=== PATIENT | female | born 1935 | race Caucasian/White ===

== ENCOUNTER 2018-04-02 00:43 | Emergency (ER) | payer MEDICARE, OTHER ==
[~2018-04-02] VITALS: Ht 165.1 cm; Wt 95.5 kg
[2018-04-02 00:48] VITALS: BP 150/62
[2018-04-02 01:21] LABS: BASOPHILS % (AUTO) 0.5 % (0-1); EOSINOPHILS # (AUTO) 0.1 X10'3 (0-0.9); EOSINOPHILS % (AUTO) 2.1 % (0-6); HEMATOCRIT 39.9 % (35.0-45.0); HEMOGLOBIN 13.6 g/dl (12.0-16.0); LYMPHOCYTES # (AUTO) 1.7 X10'3 (1.1-4.8); MEAN CORPUSCULAR HEMOGLOBIN 31.4 PG (27.0-31.0); MEAN CORPUSCULAR HGB CONC 33.9 % (33.0-36.5); MEAN CORPUSCULAR VOLUME 92.4 FL (78-98); MEAN PLATELET VOLUME 8.1 FL (7.4-10.4); MONOCYTES # (AUTO) 0.5 X10'3 (0-0.9); MONOCYTES % (AUTO) 9.8 % (2-12); NEUTROPHILS # (AUTO) 3.1 X10'3 (1.8-7.7); NEUTROPHILS % (AUTO) 55.6 % (42-75); PLATELET COUNT 199 X10'3 (140-440); RED BLOOD COUNT 4.32 X10'6 (4.20-5.60); RED CELL DISTRIBUTION WIDTH 13.3 % (11.5-14.5); WHITE BLOOD COUNT 5.4 X10'3 (4.5-11.0)
[2018-04-02 01:38] LABS: ALANINE AMINOTRANSFERASE 17 U/L (12-78); ALBUMIN 3.8 G/DL (3.4-5.0); ALBUMIN/GLOBULIN RATIO 1.3 (1.1-1.5); ALKALINE PHOSPHATASE 78 IU/L (46-116); ANION GAP 10 (8-16); ASPARTATE AMINO TRANSFERASE 14 U/L (10-37); BILIRUBIN,TOTAL 0.3 MG/DL (0.1-1.0); BLOOD UREA NITROGEN 25 MG/DL (7-18); BUN/CREATININE RATIO 19.4 (6.6-38.0); CALCIUM 9.1 MG/DL (8.5-10.1); CHLORIDE 107 MMOL/L (99-107); CREATININE 1.29 MG/DL (0.40-0.90); GLUCOSE 125 MG/DL (70-104); POTASSIUM 3.8 MMOL/L (3.5-5.1); SODIUM 140 MMOL/L (135-145); TOTAL CARBON DIOXIDE 23.5 MMOL/L (24-32); TOTAL PROTEIN 6.8 G/DL (6.4-8.2); eGFR 40 ML/MIN
[2018-04-02 01:42] LABS: PARTIAL THROMBOPLASTIN TIME 29 SECONDS (22-32); PROTHROMBIN TIME 9.7 SECONDS (9.0-12.0)
[2018-04-02 01:53] LABS: MAGNESIUM 1.4 MG/DL (1.5-2.4); PHOSPHORUS 3.2 MG/DL (2.3-4.5)
== END 2018-04-02 02:30 | disposition home or self-care (01) ==
LOC: ER 00:43
DX: R00.2 Palpitations (principal); R06.02 Shortness of breath; I10 Essential (primary) hypertension; E11.9 Type 2 diabetes mellitus without complications; Z88.5 Allergy status to narcotic agent; Z88.8 Allergy status to other drugs, medicaments and biological substances
CPT/HCPCS: 36415; 71045; 80053; 83735; 84100; 84484; 85025; 85610; 85730; 93005; 99284

== ENCOUNTER 2021-10-06 06:32 | Day surgery (SDC) | payer MEDICARE, OTHER ==
[~2021-10-06] VITALS: Ht 162.6 cm; Wt 94.4 kg
[2021-10-06] MEDS ORDERED: normal saline 1000ml 1,000 ML IV PRN (07:00)
[2021-10-06] MEDS ORDERED: ceFAZolin inj. 2,000 MG in normal saline soln 50 ML IV ONE (07:00)
[2021-10-06 07:05] VITALS: BP 128/63
[2021-10-06] MEDS ORDERED: cefazolin/dext.iso 2gm/100ml 100 ML IV ONE (07:09)
[2021-10-06] MEDS ORDERED: METF-1203 PO (07:10)
[2021-10-06] MEDS ORDERED: BENA40TA45 PO (07:10)
[2021-10-06] MEDS ORDERED: HYDR-3964 PO (07:10)
[2021-10-06] MEDS ORDERED: LEVO50TA8 PO (07:10)
[2021-10-06] MEDS ORDERED: METO25TA6 PO (07:10)
[2021-10-06] MEDS ORDERED: AMLO10TA13 PO (07:10)
[2021-10-06] MEDS ORDERED: DIPH25CA52 PO (07:14)
[2021-10-06] MEDS ORDERED: MULT-381 PO (07:14)
[2021-10-06] MEDS ORDERED: ASPI-1071 PO (07:16)
[2021-10-06] MEDS ORDERED: Tylenol (07:16)
[2021-10-06] MEDS ORDERED: PRAV20TA4 PO (07:18)
[2021-10-06 07:41] LABS: BASOPHILS % (AUTO) 0.7 % (0-1); EOSINOPHILS # (AUTO) 0.1 X10'3 (0-0.9); EOSINOPHILS % (AUTO) 2.4 % (0-6); HEMATOCRIT 36.9 % (35.0-45.0); HEMOGLOBIN 12.3 g/dl (12.0-16.0); LYMPHOCYTES # (AUTO) 1.9 X10'3 (1.1-4.8); LYMPHOCYTES % (AUTO) 33.8 % (21-51); MEAN CORPUSCULAR HEMOGLOBIN 29.2 PG (27.0-31.0); MEAN CORPUSCULAR HGB CONC 33.3 g/dL (33.0-36.5); MEAN CORPUSCULAR VOLUME 87.8 FL (78-98); MEAN PLATELET VOLUME 7.4 FL (7.4-10.4); MONOCYTES # (AUTO) 0.8 X10'3 (0-0.9); MONOCYTES % (AUTO) 14.8 % (2-12); NEUTROPHILS # (AUTO) 2.7 X10'3 (1.8-7.7); NEUTROPHILS % (AUTO) 48.3 % (42-75); PLATELET COUNT 218 X10'3 (140-440); RED CELL DISTRIBUTION WIDTH 15.9 % (11.5-14.5); WHITE BLOOD COUNT 5.6 X10'3 (4.5-11.0)
[2021-10-06] MEDS ORDERED: diphenhydrAMINE 50 mg/ml inj ONE (08:23)
[2021-10-06] MEDS ORDERED: midazolam 1 mg/ML 2ml injection ONE ×2 (08:24→09:32)
[2021-10-06] MEDS ORDERED: iohexol 300 MG/1 ML 10ml vial ONE (08:24)
[2021-10-06] MEDS ORDERED: LIDOcaine 1%/PF 5ML 10 MG/ML VIAL ONE (08:24)
[2021-10-06] MEDS ORDERED: fentaNYL/PF 50MCG/1 ML 2ML syringe ONE ×2 (08:24→09:32)
[2021-10-06] MEDS ORDERED: ceFAZolin 2gm in dextrose, iso 50 ML IV ONE (09:09)
[2021-10-06 10:09] VITALS: BP 126/56
[2021-10-06 10:24] VITALS: BP 115/56
[2021-10-06 10:39] VITALS: BP 120/58
[2021-10-06 10:54] VITALS: BP 115/63
[2021-10-06 11:24] VITALS: BP 125/46
== END 2021-10-06 11:45 | disposition home or self-care (01) ==
LOC: SSTAY O 06:32
PROVIDERS: ATTEND Preventive Medicine Aerospace Medicine
DX: M80.08XA Age-related osteoporosis with current pathological fracture, vertebra(e), initial encounter for fracture (principal); M54.50 Low back pain, unspecified; E11.9 Type 2 diabetes mellitus without complications; K21.9 Gastro-esophageal reflux disease without esophagitis; E03.9 Hypothyroidism, unspecified; I10 Essential (primary) hypertension; Z85.038 Personal history of other malignant neoplasm of large intestine; Z90.49 Acquired absence of other specified parts of digestive tract; Z98.890 Other specified postprocedural states; Z79.82 Long term (current) use of aspirin; Z79.899 Other long term (current) drug therapy; Z88.5 Allergy status to narcotic agent; Z88.8 Allergy status to other drugs, medicaments and biological substances
CPT/HCPCS: 22514; 22515; 36415; 85025; 85610; 99152; 99153; C1713; J0690; J1200; J2250; J3010; J3490; J7030; A4620; Q9967